=== PATIENT | male | born 1965 | race Caucasian/White ===

== ENCOUNTER 2023-12-08 21:56 | Emergency (ER) | payer SELFPAY ==
[2023-12-08 21:59] VITALS: BP 156/93
--- NOTE | 2023-12-09 00:07 | ED.GENMED ---
History of Present Illness
General
Chief Complaint: Abdominal Symptoms
Source: patient
Exam Limitations: none
Time Seen by Provider: 12/08/23 23:17
Nursing documentation reviewed up to this point in time: agreed with
Travel History
Have you had any contact with someone who has COVID-19?: No
Do you have any symptoms of coronavirus? Fever > 100 degrees, chills, cough, shortness of breath, sore throat, loss of taste or smell, muscle aches, or headache?: No
History of Present Illness
History of Present Illness:
This is a 58-year-old chronically homeless gentleman who presents to the ED with multiple seemingly unrelated complaints, all ongoing for a number of months to perhaps years.
He does admit to a right buttock rash which was initially evaluated 1 year ago, treated with topical medication and rash resolved but has since returned. He does admit to moderate local itching.
He suffered an insect bite right lateral abdominal wall perhaps 4 years ago that has some chronic scarring. He complains of some generalized abdominal discomfort, ongoing intermittently over the past several years and is concerned for possible
internal polyps, concerned for internal parasitic infection. He denies diarrhea nor constipation currently, denies black or tarry stools, denies hematochezia. He has had some intermittent rectal pain but denies external hemorrhoids. He admits
that abdominal discomfort is worse when he is stressed. He has had no nausea nor vomiting. He is unsure if he has had a fever or not. No chest pain, no cough no shortness of breath.
He has remote history of appendectomy, left knee replacement 2016. He admits to walking many miles a day and does have some intermittent left knee pain generally by the end of the day. He has had no fall nor recent injuries.
He takes no medicines on a daily basis.
He denies alcohol nor drug use.
He was born and raised in [place] but has been homeless, traveling state to [facility] for a number of years.
Has recently returned to [place], this area just within the past few days.
Past History
Past History
ED Past Medical History: None
ED Past Surgical History: Appendectomy, Orthopedic (Left knee replacement 2016) and Other (Inguinal hernia repair)
Social History
Tobacco: Non-smoker
Alcohol: None
Drug: None
Personal: Single
Living: homeless
Employment: Not employed
Family History
Family History: Other (Noncontributory)
Phy Exam
Physical Exam
Physical Exam:
GENERAL: 58-year-old somewhat disheveled gentleman appears his stated age, awake and alert, easily communicative, appears in no acute distress. He is afebrile.
EYE: pupils equal and reactive. anicteric
NECK: Supple, nontender, no meningismus, no significant adenopathy.
ENT: posterior pharynx is clear, oral mucosa is moist. TM clear b/l, nares patent.
CARDIAC: Regular rate and rhythm. no murmur.
LUNGS: Clear breath sounds bilaterally, no acute respiratory distress, no wheezes/rales/rhonchi
ABDOMEN: Soft, nondistended, mild generalized tenderness to the lower abdomen with deep palpation only, no rebound or guarding, no palpable masses. No r/g, no cvat. normoactive BS. Rectal exam reveals scant brown stool per vault that is
heme-negative. No rectal nor anal masses.
NEUROLOGICAL: Alert and oriented x3, no focal neuro deficits. Gait is campos and steady.
SKIN: Warm and dry, normal color, skin intact. There is a serpiginous erythematous patch right buttock with central clearing consistent with tinea corporis.
MUSCULOSKELETAL: No C/C/E. peripheral pulses are full and equal b/l. Evidence of prior left total knee replacement with old anterior vertical scar. No tenderness to palpation. No palpable effusion. Full knee range of motion without difficulty
nor pain.
PSYCH: Mildly guarded. Offers multiple conspiracy theories. Admits to chronic homelessness. Denies hallucinations. Denies suicidal thoughts or plan. Denies alcohol nor drug use.
Course
Orders/Labs/Results
Orders:
Orders
03/06/24 23:57
Complete Blood Count/With Diff Urgent
Comprehensive Metabolic Panel Urgent
Lipase Urgent
Sed Rate [Erythrocyte Sed Rate] Urgent
12/08/23 23:58
CRP [C-Reactive Protein] Urgent
Urinalysis Reflex To Culture Urgent
Date Specimen was Collected: 12/09/23
Time Specimen was Collected: 00:26
Urine Drug Abuse Screen Urgent
Date Specimen was Collected: 12/09/23
Time Specimen was Collected: 00:26
12/09/23 00:35
Clotrimazole [Lotrimin 1% Cream] See Dose Instructions TOPICAL NOW STA
Abnormal Lab Results
12/09/23
00:22
RBC 3.30 L 10^6/uL
(4.70-6.10)
Hgb 11.1 L g/dL
(13.0-18.0)
Hct 32.3 L %
(39.0-52.0)
MCV 97.9 H fL
(80.0-94.0)
MCH 33.6 H pg
(27.0-31.0)
Abs Immat Gran (auto) 0.1 H 10^3/uL
(0-0.05)
Immature Gran % 1.2 H %
(0-0.5)
Eosinophils % 9.3 H %
(0-6)
ESR 23 H mm/hour
(0-20)
Glucose 107 H mg/dl
(70-99)
Calcium 8.2 L mg/dl
(8.4-10.2)
Albumin 3.4 L g/dl
(3.5-5.0)
12/09/23 00:22
12/09/23 00:22
Vital Signs
Initial and Last Documented VS:
Initial Vital Signs
Temp Pulse Resp BP Pulse Ox
97.7 F 110 16 156/93 94
12/08/23 21:59 12/08/23 21:59 12/08/23 21:59 12/08/23 21:59 12/08/23 21:59
Last Documented Vital Signs
Temp Pulse Resp BP Pulse Ox
97.7 F 84 18 144/88 95
12/08/23 21:59 12/09/23 01:00 12/09/23 01:00 12/09/23 01:00 12/09/23 01:00
MDM/Problems Addressed
Differential Diagnosis Includes:
Chronically homeless gentleman presents with multiple seemingly unrelated complaints all chronic in nature.
He is noted to have mild tenderness lower abdomen with deep palpation only.
He is also noted to have a patch of tinea corporis right buttock. Will initiate antifungal cream.
Will check routine labs assess for potential inflammatory condition.
Overall nontoxic in appearance and I suspect his greatest issue is homelessness, poor social support.
*Pulse Oximetry
Patient hypoxic: no
*Critical Care Note
Total Time (30-74mins, 75-104mins- exclusive of procedures): Not Applicable
Patient Management
Social determinants of health affecting care: Living situation and Poor outpatient follow-up
Update Note
Update Note:
Labs are unremarkable.
Patient continues to sleep and undisturbed and overall appears quite comfortable.
He has been started on clotrimazole cream to tinea corporis right buttock. Recommend he continue this twice daily for the next 4 weeks. A prescription has been provided but this is [id number].
He has been provided information for our free clinic for follow-up as needed.
ED Attending Note
-
Portions of this chart may have been created with voice recognition software.� Occasional wrong word or��sound alike� substitutions may have occurred due to the inherent limitations of voice recognition software.
Discharge Plan
Departure
Patient Disposition: Home (Routine Discharge)
Date of Disposition: 12/09/23
Time of Disposition: 02:10
Patient with high blood pressure during this ER visit?: Yes
Condition: Good
Discharge Problem:
Tinea corporis
Instructions: Fungal Skin Rash (DC)
Prescriptions:
New
clotrimazole 1 % cream
1 applic topical BID 28 Days Qty: 45 0RF
Referrals:
[facility]] - As needed
NONE,* [Family Provider] -
Interventions
Interventions:
*Risk Screen - Suicide Last Done: 12/08/23 21:59
*General Assessment Last Done: 12/08/23 21:59
*Neglect/Abuse Screening Last Done: 12/08/23 21:59
*Nursing Disposition Last Done: 12/09/23 03:31
[id number] Assessment Last Done: 12/09/23 02:14
Discharge Date and Time
Discharge Date/Time: 12/09/23 03:32
[2023-12-09 00:35] LABS: Urine Albumin Negative (Neg - Trace); Urine Bilirubin Negative (Negative); Urine Character Clear (Clear); Urine Color Yellow; Urine Glucose Negative (Negative); Urine Ketone Negative (Negative); Urine Leukocyte Negative (Negative); Urine Nitrite Negative (Negative); Urine Occult Blood Negative (Negative); Urine Specific Gravity 1.005 (<1.030); Urine Urobilinogen Negative (Neg - 1+)
[2023-12-09 00:36] LABS: % Basophils 0.9 % (0-2); % Eosinophils 9.3 % (0-6); % Immature Granulocytes 1.2 % (0-0.5); % Lymphocytes 23.4 % (20.5-51.1); % Monocytes 9.2 % (1.7-9.3); Absolute Basophils 0.1 10^3/uL (0-0.2); Absolute Eosinophils 0.5 10^3/uL (0-0.7); Absolute Immature Granulocytes 0.1 10^3/uL (0-0.05); Absolute Lymphocytes 1.3 10^3/uL (1.2-3.4); Absolute Monocytes 0.5 10^3/uL (0.1-0.6); Absolute Neutrophils 3.2 10^3/uL (1.4-6.5); Hematocrit 32.3 % (39.0-52.0); Hemoglobin 11.1 g/dL (13.0-18.0); Mean Corp Hgb Conc. 34.4 g/dL (33.0-37.0); Mean Corpuscular Hgb 33.6 pg (27.0-31.0); Mean Corpuscular Volume 97.9 fL (80.0-94.0); Mean Platelet Volume 9.3 fL (7.4-10.4); Nucleated Red Blood Cells % 0 % (-); Platelet Count 227 10^3/uL (130-400); White Blood Cell Count 5.7 10^3/uL (4.8-10.8)
[2023-12-09 00:48] LABS: Amphetamines Negative (Negative); Barbiturates Negative (Negative); Benzodiazepines Negative (Negative); Buprenorphine Negative (Negative); Cocaine Negative (Negative); Marijuana Negative (Negative); Methadone Negative (Negative); Methamphetamines Negative (Negative); Opiates Negative (Negative); Phencyclidine Negative (Negative); Tricyclic Antidepressants Negative (Negative)
[2023-12-09 00:48] LABS: ALT (SGPT) 18 U/L (0-50); AST (SGOT) 23 U/L (17-59); Albumin 3.4 g/dl (3.5-5.0); Alkaline Phosphatase 81 U/L (38-126); Blood Urea Nitrogen 15 mg/dl (9-20); Calcium 8.2 mg/dl (8.4-10.2); Carbon Dioxide 27 mmol/L (22-30); Chloride 107 mmol/L (98-107); Glucose 107 mg/dl (70-99); Lipase 97 U/L (23-300); Potassium 3.8 mmol/L (3.5-5.1); Sodium 136 mmol/L (135-145); Total Bilirubin 0.6 mg/dl (0.2-1.3); Total Protein 7.4 g/dl (6.3-8.2); eGFR > 60.00
[2023-12-09 01:00] VITALS: BP 144/88
[2023-12-09 01:01] LABS: Erythrocyte Sed Rate 23 mm/hour (0-20)
[2023-12-09] MEDS: LOTRIMIN 1% CREAM 1 APPLIC TOPICAL (01:03)
== END 2023-12-09 03:32 | disposition home or self-care (01) ==
LOC: EMR 21:56
PROVIDERS: EMERGENCY PHYSICIAN Emergency Medicine
DX: B35.4 Tinea corporis (principal); R03.0 Elevated blood-pressure reading, without diagnosis of hypertension; Z59.00 Homelessness unspecified
CPT/HCPCS: 99283; 80053; 80306; 81003; 83690; 85025; 85652; 86140